=== PATIENT | male | born 1965 | race African-American/Black ===

== ENCOUNTER 2022-12-07 16:32 | Emergency (ER) | payer OTHER ==
--- OUTSIDE RECORDS SUMMARY | 2022-12-07 16:35 | XMS REPORT | Continuity of Care Document ---
:1965 Author Organization [facility] t Address [address] [place] [address] Care Team Providers Name Role Phone Leah Gómez DO Attending Clinician Gumaro Vega MD Attending Clinician Gumaro Vega MD Admitting Clinician Problems Condition Condition Condition Status Onset Resolution Last Treating Co mments Source Name Details Category Date Date Treatment Clinician Date Tachypnea Tachypnea Disease Active Uni vers 11-17 ity of 00:00: [address] Allergies, Adverse Reactions, Alerts Allergy Allergy Status Severity Reaction(s) Onset Inactive Treating Comm ents Source Name Type Date Date Clinician NO KNOWN Drug Active Univers ALLERGIE Class ity of [facility] Social History Social Habit Start Date Stop Date Quantity Comments Source [facility] Exposure to SARS-CoV-2 Not sure [facility] [place] (event) [facility] Smoking Status Start Date Stop Date Source Unknown if ever smoked Universit y [facility] Medications Ordered Filled Start Stop Current Ordering Indication Dosage Frequency Signature Comments Components Source Medication Medication Date Date Medication? Clinician (SIG) Name Name enoxaparin 2019-0 Yes 40mg 40 mg, Unive rs (LOVENOX) 11-17 Subcutaneo ity of [place] 14:00[place] 00 First dose Medical on [facility] 11/18/19 at 0900, Until Discontinu ed, Routine Sliding 2019-0 Yes Subcutaneo Univ ers Scale 11-17 us, TID ity of Insulin - 13:00: MEALS+HS, [place] Lispro 00 First dose Medical (HumaLOG) + on [facility] Fsbg 11/18/19 at Testing 0800, Until Discontinu ed, Routine albuterol-i 2019-0 Yes 1{puff} 1 Puff, [facility] pratropium 11-17 Inhalation ity of (COMBIVENT 13:00: , QID, [place] RESPIMAT) 00 First dose Medi gertrude 20-100 on [facility] Branch mcg/actuati 11/18/19 at on inhaler 0800, 1 Puff Until Discontinu ed, Routine
Is this order for a patient with suspected or confirmed COVID-19 infection? Yes albuterol-i 2019-0 2020- No 1{puff} 1 Puff, [facility] pratropium 11-17 Inhalation it y of (COMBIVENT 13:00: 12:23 , ONCE, [place] RESPIMAT) 00 :00 dose, [facility] Medic al 20-100 11/18/19 at [place] mcg/actuati 0800, on inhaler Routine<br 1 Puff >Is this order for a patient with suspected or confirmed COVID-19 infection? Yes glucagon 2019- Yes 1mg 1 mg, Univers (GLUCAGEN 11-17 Intramuscu ity of DIAGNOSTIC 12:56: lar, [place]N, [place] KIT) 58 Starting Medical injection 1 [facility] 11/18/19 Br anch mg at 0756, Until Discontinu ed, HECTOR, Blood Glucose < or = 70 mg/dL and patient is unable to swallow or has mental changes. dextrose 50 2019-0 Yes 25mL 25 mL, Univ ers % in water 11-17 Slow IV ity of (D50W) 12:56: Push, PRN, [place] injection 58 Starting Medica l 25 mL [facility] 11/18/19 Branch at 0756, Until Discontinu ed, HECTOR, Blood Glucose < or = 70 mg/dL and patient is unable to swallow or has mental status changes. HYDROcodone 2020-0 2020- No 1{tbl} 1 tablet, Univers -acetaminop 11-1711 Oral, ity of hen (NORCO 12:56: 12:55 Q6HPRN, [place] 5) 5-325 mg 49 :49 Starting Medi gertrude tablet 1 [facility] 11/18/19 Branc h tablet at 0756, Until 11/20/19 at 0755, Routine, Pain (scale 4-6) acetaminoph 2019-0 Yes 650mg 650 mg, Un albert en 7-09 Oral, ity of (TYLENOL) 12:56: Q6R, [place] tablet 650 46 Starting Medic al mg [facility] 11/18/19 Branch at 0756, Until Discontinu ed, Routine, Pain (scale 1-3) predniSONE 50mg 50 mg, [facility] ers (DELTASONE) 11-17 Oral, ity of tablet 50 12:15: 11:39 ONCE, [place] mg 00 :00 dose, [facility] Medical 11/18/19 at Branch 0715, HECTOR No known No Univers medications [facility] Vital Signs Vital Name Observation Time Observation Value Comments Source Systolic blood 2019-11-18 13:04:47 142 mm[Hg] [facility] Diastolic blood 2019-11-18 13:04:47 91 mm[Hg] [facility] Heart rate 2019-11-18 13:04:47 93 /min [facility] Respiratory rate 2019-11-18 13:04:47 19 /min [facility] Oxygen saturation in 2019-11-18 13:04:47 95 /min [facility] Arterial blood by [facility] Pulse oximetry [place] Body temperature 2019-11-18 11:01:00 37.83 Maribeth [facility] Body height 2019-11-18 11:01:00 185.4 cm [facility] Body weight 2019-11-18 11:01:00 133.811 kg [facility] BMI 2019-11-18 11:01:00 38.92 kg/m2 [facility] Procedures Procedure Date / Time Performing Clinician Source Performed XR CHEST 1 VW COVID 2019-11-18 11:27:04 Leah Gómez [facility] HEPATIC FUNCTION PANEL 2019-11-18 11:09:00 Gumaro Vega [facility] ([id number]) (ALB,T.PRO,BILI [facility] T,BU/BC,ALT,AST,ALK PHOS) BASIC METABOLIC PANEL 2019-11-18 11:09:00 Leah Gómez [facility] (NA, K, CL, CO2, [facility] Branch GLUCOSE, BUN, CREATININE, CA) CBC WITH DIFFERENTIAL 2019-11-18 11:09:00 Leah Gómez Uni versity [facility] COVID-19 (ID NOW RAPID 2019-11-18 11:09:00 [facility] Encounters Start End Encounter Admission Attending Care Care Encounter Source Date/Time Date/Time Type Type Clinicians Facility Department ID 2019-11-18 2019-11-18 Emergency Leah Gómez [facility] [id number] Univers 05:35:23 08:32:00 [id number] [id number] [facility] gertrude 084 Branch 2019-11-18 2019-11-18 Emergency X [facility] ERT [id number] Univers 05:35:23 05:35:23 [facility] Results Test Description Test Time Test Comments Results Result Comments Source HEPATIC FUNCTION PANEL (88509) (ALB,T.PRO,BILI 2019-11-18 13 :32:00 T,BU/BC,ALT,AST,ALK PHOS) Test Item Value Reference Range Interpretation Comme nts TOTAL BILI (test code = 8075986254) 0.6 mg/dL 0.1-1.1 BILI UNCON (test code = 1221637129) 0.6 mg/dL 0.1-1.1 BILI CONJ (test code = 7257767868) 0.0 mg/dL 0-0.3 T PROTEIN (test code = 4620800452) 8.7 g/dL 6.3-8.2 H ALBUMIN (test code = 1203021098) 4.3 g/dL 3.5-5 ALK PHOS (test code = 6429373815) 65 U/L 34-122 ALTv (test code = 1742-6) 22 U/L 5-50 AST(SGOT) (test code = 6401292096) 29 U/L 13-40 Lab Interpretation (test code = 01434-1) Abnormal [facility] 1 VW [id number] 12:52:37 Bilateral hazy airspace opacities are concerning for pneumonia, includingCOVID 19 etiology. Disclaimer: Generally, the findings on chest imaging in COVID-19 are notspecific, and overlap with other infections, including influenza, H1N1,SARS and MERS.According to the Centers for Disease Control (CDC) and the [employer], viral testing remains the only specific method of diagnosiseven if CXR or CT findings are suggestive of COVID-19. Preliminary Report Dictated by Resident: Lonny Salcido MD., have reviewed this study and agree with theabove report.PROCEDURE: CHEST XRAY , CLINICAL INDICATION: poss covid COMPARISON: None FINDINGS: Hazy airspace opacities in the left mid and bilateral lower lung zones areseen. No pleural effusion or pneumothorax. The cardiac silhouette is normal in size. No acute bony abnormality. [facility], Radiant Results Inft User - 11/18/2019 7:53 AM CDTPROCEDURE: CHEST XRAY , CLINICAL INDICATION: poss covid COMPARISON: NoneFINDINGS:Hazy airspace opacities in the left mid and bilateral lower lung zones areseen. No pleural effusion or pneumothorax.The cardiac silhouette is normal in size.No acute bony abnormality.IMPRESSIONBilateral hazyairspace opacities are concerning for pneumonia, includingCOVID 19 etiology.Disclaimer: Generally, the findings on chest imaging in COVID-19 are notspecific, and overlap with other infections, including influenza, H1N1,SARS and MERS.According to the Centers for Disease Control (CDC) and the [employer], viral testing remains the only specific method of diagnosiseven if CXR or CT findings are suggestive of COVID-19. Preliminary Report Dictated by Resident: Lonny Platt MD., have reviewed this study and agree with theabove report.[facility] METABOLIC [facility] (NA, K, CL, CO2, GLUCOSE, BUN, CREATININE, CA)2019-11-18 11:39:00 Test Item Value Reference Range Interpretation Comments NA (test code = 136 mmol/L 135-145 7388428959) K (test code = 3.5 mmol/L 3.5-5 1026909236) CL (test code = 96 mmol/L 98-108 L 7502282373) CO2 TOTAL (test code = 29 mmol/L 23-31 4124307937) AGAP (test code = 2-16 7525558738) BUN (test code = 25 mg/dL 7-23 H 9188153858) GLUCOSE (test code = 255 mg/dL 70-110 H 7733981543) CREATININE (test code = 0.99 mg/dL 0.6-1.25 7214785825) CALCIUM (test code = 9.2 mg/dL 8.6-10.6 7564549362) eGFR Calculation mL/min/1.73m2 (Non-) (test code = 5389564366) eGFR Calculation mL/min/1.73m2 () (test code = 0380634920) TOM (test code = TOM) Association of Glomerular Filtration Rate (GFR) and Staging of Kidney Disease* + --+ --+ ------+| GFR (mL/min/1.73 m2) ?| With Kidney Damage ?| ?Without Kidney Damage+ --------+ --------+ +| ?>90 ?| ?Stage one ?| ? Normal ?+ ---+ ---+ -------+| ?60-89 ?| ?Stage two ?| ? Decreased GFR ? + --+ --+ ------+| ?30-59 ?| ?Stage three ?| ? Stage three ? + --+ --+ ------+| ?15-29 ?| ?Stage four ? | ? Stage four ?+ ---+ ---+ -------+| ?<15 (or dialysis) ? ?| ?Stage five ? | ? Stage five ?+ ---+ ---+ -------+ *Each stage assumes the associated GFR level has been in effect for at least three months. ?Stages 1 to 5, with or without kidney disease, indicate chronic kidney disease. Notes: Determination of stages one and two (with eGFR >59mL/min/1.73 m2) requires estimation of kidney damage for at least three months as defined by structural or functional abnormalities of the kidney, manifested by either:Pathological abnormalities or Markers of kidney damage (including abnormalities in the composition of the blood or urine or abnormalities in imaging tests). Lab Interpretation Abnormal (test code = 32334-5) [facility] NOW [facility]ID TESTING)2019-11-18 11:35:00 Test Item Value Reference Range Interpretation Comments SARS-CoV-2 Rapid ID NOW Positive Not Detected A (test code = 16421-8) TOM (test code = TOM) ID NOW COVID-19 Assay is an isothermal nucleic acid amplification test intended for the qualitative detection of nucleic acid from SARS-CoV-2 viral RNA in nasopharyngeal (PIPE TESTER) specimens. It is used under Emergency Use Authorization (EUA) by FDA. The limit of detection (LOD) of the assay is 125 Genome Equivalents/mL. A positive result is indicative of the presence of SARS-CoV-2 RNA. ?Clinical correlation with patient history and other diagnostic information is necessary to determine patient infection status. A negative (Not Detected) result does not preclude SARS-CoV-2 infection. In patients with clinical symptoms and other tests that are consistent with SARS-CoV-2 infection, negative results should be treated as presumptive negative and a new specimen should be tested with alternative PCR molecular test. Invalid: Please collect a new specimen for repeat patient testing if clinically indicated. Lab Interpretation Abnormal (test code = 10844-7) [facility] WITH [id number] 11:24:00 Test Item Value Reference Range Interpretation Comments WBC (test code = See_Comment [Automated 9942-2) message] The sy stem which generated this result transmitted reference range : 4.20 - 10.70 10*3/?L. The reference range was not used to interpret this result as normal/abnormal . RBC (test code = See_Comment [Automated 293-8) message] The sy stem which generated this result transmitted reference range : 4.26 - 5.52 10*6/?L. The reference range was not used to interpret this result as normal/abnormal . HGB (test code = 12.9 g/dL 12.2-16.4 718-7) HCT (test code = 40.2 % 38.4-49.3 4544-3) MCV (test code = 80.9 fL 81.7-95.6 L 787-2) MCH (test code = 26.0 pg 26.1-32.7 L 785-6) MCHC (test code = 32.1 g/dL 31.2-35 786-4) RDW-SD (test code = 43.6 fL 38.5-51.6 24178-9) RDW-CV (test code = 14.8 % 12.1-15.4 788-0) PLT (test code = See_Comment [Automated 777-3) message] The sy stem which generated this result transmitted reference range : 150 - 328 10*3/ ?L. The reference r zoraida was not used to interpret this result as normal/abnormal . MPV (test code = 8.8 fL 9.8-13 L 42180-0) NRBC/100 WBC (test See_Comment [Automat ed code = 9438117642) message] The system which generated this result transmitted reference range : 0.0 - 10.0 /100 WBCs. The refer ence range was not u sed to interpret th is result as normal/abnormal . NRBC x10^3 (test code <0.01 See_Comment [Auto mated = 6309249005) message] The s ystem which generated this result transmitted reference range : 10*3/?L. The reference range was not used to interpret this result as normal/abnormal . GRAN MAT (NEUT) % 61.5 % (test code = 770-8) IMM GRAN % (test code 0.50 % = 3259654274) LYMPH % (test code = 31.3 % 736-9) MONO % (test code = 6.3 % 5905-5) EOS % (test code = 0.2 % 713-8) BASO % (test code = 0.2 % 706-2) GRAN MAT x10^3(ANC) 3.98 10*3/uL 1.99-6.95 (test code = 8372269422) IMM GRAN x10^3 (test 0.03 10*3/uL 0-0.06 code = 7201840263) LYMPH x10^3 (test code 2.02 10*3/uL 1.09-3.23 = 731-0) MONO x10^3 (test code 0.41 10*3/uL 0.36-1.02 = 742-7) EOS x10^3 (test code = <0.03 0.06-0.53 L 711-2) BASO x10^3 (test code <0.03 0.01-0.09 = 704-7) Lab Interpretation Abnormal (test code = 40662-4) [facility]"
[2022-12-07] MEDS ORDERED: MORPHINE 4 MG/ML SYR ONE (17:14)
[2022-12-07] MEDS ORDERED: NA CHLORIDE 0.9% 1,000 ML ONE (17:15)
[2022-12-07] MEDS ORDERED: ONDANSETRON 4 MG/2 ML VIAL ONE (17:15)
[2022-12-07 17:17] LABS: Absolute Lymphocytes (CBC) 2.7 K/uL (0.7-4.9); Hematocrit 38.5 % (39.6-49.0); Lymphocytes % 37.8 % (15.3-44.8); MCV 81.2 fL (80-100); MPV 6.9 fL (7.6-11.3); RBC Red Blood Cell Count 4.74 M/uL (4.33-5.43)
[2022-12-07] MEDS ORDERED: HYDROMORPHONE HCL 1 MG/ML INJ ONE (17:31)
[2022-12-07 17:34] LABS: Potassium 3.1 mEq/L (3.5-5.1)
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
[2022-12-07 20:38] VITALS: TEMP 98.1; O2SAT 100
[2022-12-07 20:42] VITALS: BP 170/89
== END 2022-12-07 19:55 | disposition home or self-care (01) ==
LOC: ER 16:32
DX: M54.9 Dorsalgia, unspecified (principal); M54.2 Cervicalgia; V59.40XA Driver of pick-up truck or van injured in collision with unspecified motor vehicles in traffic accident, initial encounter; I10 Essential (primary) hypertension
CPT/HCPCS: 85025; 80048; 36415; 86900; 86850; 82565; 86901; 70450; 72125; 71260; 74177; 96375; 96374; 99284; Q9967; J1170; J2405; J7030